=== PATIENT | female | born 1930 ===

== ENCOUNTER 2016-11-15 19:03 | Emergency (ER) | payer SELFPAY ==
[2016-11-15 19:21] VITALS: TEMP 97.2
[2016-11-15] MEDS ORDERED: DiphenhydrAMINE 50 mg/ml Inj IM STA (19:57)
[2016-11-15] MEDS ORDERED: DiphenhydrAMINE 50 mg/ml Inj ONE (20:07)
--- NOTE | 2016-11-15 20:16 | C.PDOC ---
History Of Present Illness A 86 year old female presents to the emergency room with complaints of generalized pruritic rash for 2 weeks. Patient was seen by PMD and was given Loratadine with some relief. Patient notes that she broke out with a rash and hives today and had no relief with loratadine and benadryl. Patient denies any shortness of breath, lip swelling, tongue swelling, difficulty swallowing, fever , chills, nausea, vomiting, or any other complaints. Time Seen by Provider: 11/15/16 19:46 Chief Complaint (Nursing): Abnormal Skin Integrity History Per: Patient History/Exam Limitations: no limitations Onset/Duration Of Symptoms: Other (2 weeks) Current Symptoms Are (Timing): Worse Quality Of Symptoms: denies: Painful, Itching, Swollen, Draining Severity: Moderate Recent travel outside of the [place]: No Past Medical History Reviewed: Historical Data, Nursing Documentation, Vital Signs Vital Signs: Last Vital Signs Temp 97.2 F L 11/15/16 19:15 Pulse 72 11/15/16 20:33 Resp 18 11/15/16 20:33 BP 158/85 H 11/15/16 20:33 Pulse Ox 99 11/15/16 21:18 Family History: States: No Known Family Hx - Social History Hx Alcohol Use: Yes Hx Substance Use: No - Immunization History Hx Influenza Vaccination: No Hx Pneumococcal Vaccination: No Review Of Systems Except As Marked, All Systems Reviewed And Found Negative. Constitutional: Negative for: Fever, Chills ENT: Negative for: Mouth Swelling (Tongue swelling), Throat Pain, Throat Swelling, Other (Diffculty swallowing) Respiratory: Negative for: Shortness of Breath Gastrointestinal: Negative for: Nausea, Vomiting, Diarrhea Skin: Positive for: Rash (Generalized pruritic rash. Broke out in Hives today.) Physical Exam - Physical Exam Appears: Well, Non-toxic Skin: Rash (Diffuse erythematous maculopapular rash with areas of patchy scaly rashes at different stages.) Head: Atraumatic, Normacephalic Eye(s): bilateral: Normal Inspection, PERRL, EOMI Ear(s): Bilateral: Normal Nose: Normal, No Discharge, No Deformity, No Tenderness Oral Mucosa: Moist Tongue: Normal Appearing, No Swelling, No Erythema Lips: Normal Appearing, No Swelling, No Erythema Throat: Normal, No Erythema, No Exudate Neck: Normal ROM, Supple Cardiovascular: Rhythm Regular Respiratory: Normal Breath Sounds, No Rales, No Rhonchi, No Stridor, No Wheezing Extremity: Normal ROM, No Pedal Edema Neurological/Psych: Oriented x3, Normal Speech, Normal Cognition Gait: Steady ED Course And Treatment O2 Sat by Pulse Oximetry: 99 Medical Decision Making Medical Decision Making: Impression: A 86 year old female with a generalized pruritic rash. Diffuse erythematous maculopapular rash with areas of patchy dry scaly rashes at different stages Plan: -- Benadryl & Prednisone Progress Notes: Patient was given Benadryl & Prednisone. On reevaluation, patient is resting comfortably, tolerating PO, has no shortness of breath, has no intra-oral swelling, no stridor. Patient notes that pruritus has improved. Patient was advised to avoid potential allergens, and to follow up with physician in 1-2 days. Disposition - Disposition Disposition: HOME/ ROUTINE Disposition Time: 20:17 Condition: STABLE Additional Instructions: Please follow up with PMD Use meds as directed Return to ER if worse Prescriptions: Cetirizine HCl [Zyrtec] 10 mg PO DAILY #20 capsule Hydrocortisone 1% Cream [Cortizone 1% Cream] 1 appl TP BID #60 g predniSONE [Prednisone] 40 mg PO DAILY #10 tab Instructions: Urticaria (ED) Print Language: BENGALI - Clinical Impression Clinical Impression: Urticaria - Scribe Statement The provider has reviewed the documentation as recorded by the Tomekaibsu Keller All medical record entries made by the Jose were at my direction and personally dictated by me. I have reviewed the chart and agree that the record accurately reflects my personal performance of the history, physical exam, medical decision making, and the department course for this patient. I have also personally directed, reviewed, and agree with the discharge instructions and disposition.
[2016-11-15 20:35] VITALS: BP 158/85; PULSE 72; RESP 18
[2016-11-15 21:10] VITALS: O2SAT 99
== END 2016-11-15 20:35 | disposition home or self-care (01) ==
LOC: C.ER 19:03
DX: L50.9 Urticaria, unspecified (principal)
CPT/HCPCS: 96372; 99283; J1200